=== PATIENT | female | born 1955 | race Hispanic/Latino ===

== ENCOUNTER → 2017-11-17 | Outpatient (CLI) | payer MEDICAID | END | disposition home or self-care (01) | LOC: RAH 10:39 | PROVIDERS: ATTEND Family Medicine | DX: Z12.31 Encounter for screening mammogram for malignant neoplasm of breast (principal); M51.16 Intervertebral disc disorders with radiculopathy, lumbar region; M51.17 Intervertebral disc disorders with radiculopathy, lumbosacral region; M48.061 Spinal stenosis, lumbar region without neurogenic claudication | CPT/HCPCS: 72148; 77067 ==

== ENCOUNTER 2018-09-30 20:14 | Inpatient (IN) | payer MEDICAID ==
[~2018-09-30] VITALS: Ht 162.6 cm; Wt 72.0 kg
[2018-09-30 21:57] LABS: BASOPHILS % (AUTO) 0.7 % (0.0-5.0); EOSINOPHILS % (AUTO) 3.4 % (0.0-8.0); HEMATOCRIT 38.4 % (36-48); LYMPHOCYTES % (AUTO) 17.6 % (21.0-51.0); MEAN CORPUSCULAR HEMOGLOBIN 28.1 pg (27.0-33.0); MEAN CORPUSCULAR HGB CONC 33.1 g/dL (32.0-36.0); MEAN CORPUSCULAR VOLUME 84.8 fL (79-99); MONOCYTES % (AUTO) 5.3 % (3.0-13.0); NUCLEATED RED BLOOD CELLS 0.1 % (0.0-0.19); PLATELET COUNT (AUTO) 285 K/uL (130-400); RED BLOOD CELL COUNT(AUTO) 4.53 MIL/uL (4.00-5.50); RED CELL DISTRIBUTION WIDTH 16.2 % (11.0-15.5); WHITE BLOOD COUNT (AUTO) 7.5 K/uL (4.8-10.8)
[2018-09-30] MEDS ORDERED: VANCOMYCIN 1GM+NS 250ML 250 ML IV ONE (22:01)
[2018-09-30] MEDS ORDERED: ONDANSETRON HCL 4 MG/2 ML VIAL ONE (22:01)
[2018-09-30] MEDS ORDERED: MORPHINE SULFATE 4 MG/1ML SYG ONE (22:02)
[2018-09-30 22:07] LABS: CREATININE 1.7 mg/dL (0.5-1.5); POTASSIUM 3.3 mmol/L (3.5-5.1)
[2018-09-30 22:12] LABS: ALBUMIN 3.6 g/dL (3.5-5.0); BILIRUBIN,TOTAL 0.4 mg/dL (0.2-1.0); TOTAL PROTEIN, SERUM 8.3 g/dL (6.0-8.3)
[2018-09-30 23:14] LABS: ERYTHROCYTE SEDIMENTATION RATE 62 MM/HR (0-30)
[2018-10-01] VITALS (7 sets, daily range): BP systolic 115–160; BP diastolic 60–86
[2018-10-01] MEDS: SODIUM CHLORIDE 0.9% 1000ML 1,000 ML IV SCH ×2 (00:22→12:02)
[2018-10-01] MEDS ORDERED: ONDANSETRON HCL 4 MG/2 ML VIAL IV PRN (00:30)
[2018-10-01] MEDS ORDERED: ACETAMINOPHEN 325 MG TAB PO PRN ×2 (00:30)
[2018-10-01] MEDS ORDERED: HYDRALAZINE HCL 20 MG/ML VIAL IV PRN (00:30)
[2018-10-01] MEDS ORDERED: HYDROCODONE/ACETAMINOPHEN 5/325 MG TAB PO PRN ×2 (00:30)
[2018-10-01] MEDS ORDERED: VANCOMYCIN 1GM+NS 250ML 250 ML IV SCH (00:30)
[2018-10-01] MEDS ORDERED: ZOSYN 3.375GM+NS 50ML 50 ML IV ONE (00:40)
[2018-10-01] MEDS ORDERED: HYDROCODONE/ACETAMINOPHEN 5/325 MG TAB ONE ×2 (01:01→02:22)
[2018-10-01] MEDS ORDERED: SUCR1TAB2 PO (02:51)
[2018-10-01] MEDS ORDERED: ATOR40TA69 PO (02:51)
[2018-10-01] MEDS ORDERED: CLIN300C9 PO (02:51)
[2018-10-01] MEDS ORDERED: BIOT10004 PO (02:51)
[2018-10-01] MEDS ORDERED: METO25 PO (02:51)
[2018-10-01] MEDS ORDERED: PYRI100T2 PO (02:51)
[2018-10-01] MEDS ORDERED: OXYB5TAB10 PO (02:51)
[2018-10-01] MEDS ORDERED: SERT25TA5 PO (02:51)
[2018-10-01] MEDS ORDERED: CILO100T PO (02:51)
[2018-10-01] MEDS ORDERED: VANCOMYCIN PROTOCOL PER PHARMACY IV SCH (03:30)
[2018-10-01] MEDS ORDERED: LIDOCAINE HCL-MPF 1% 2ML VIAL IVP PRN (08:30)
[2018-10-01] MEDS ORDERED: POTASSIUM CHLORIDE 10% ELIXIR 20 MEQ/15 ML UDCUP PO PRN (08:30)
[2018-10-01] MEDS ORDERED: POTASSIUM CHLORIDE 10MEQ/100ML 100 ML IV PRN (08:30)
[2018-10-01] MEDS ORDERED: POTASSIUM CHLORIDE 20 MEQ ERTAB PO PRN (08:30)
--- NOTE | 2018-10-01 08:45 | NUR ---
DR TENORIO IN TO SEE PATIENT ORDER MRI OF LEFT FOOT
[2018-10-01] MEDS: BIOTIN 500 MCG PO SCH (09:00)
[2018-10-01] MEDS: FAMOTIDINE/PF 20 MG/2 ML VIAL IV SCH (10:19)
[2018-10-01] MEDS: SUCRALFATE 1 GM TABLET PO SCH (10:19)
[2018-10-01] MEDS: PYRIDOXINE HCL 50 MG TABLET PO SCH (10:20)
[2018-10-01] MEDS: METOPROLOL TARTRATE 25 MG TAB PO SCH ×2 (10:20→20:29)
[2018-10-01] MEDS: CILOSTAZOL 100 MG TAB PO SCH ×2 (10:20→20:30)
[2018-10-01] MEDS: SERTRALINE HCL 50 MG TABLET PO SCH (10:20)
--- NOTE | 2018-10-01 10:25 | NUR ---
DOWN FOR MRI OF LEFT FOOT
--- NOTE | 2018-10-01 10:55 | NUR ---
BACK FROM MRI
[2018-10-01] MEDS: ZOSYN 3.375GM+NS 50ML 50 ML IV SCH ×2 (10:57→20:28)
[2018-10-01] MEDS: ENOXAPARIN SODIUM 30 MG/0.3 ML SQ SCH ×2 (10:58→20:29)
[2018-10-01] MEDS: INSULIN HUMULIN R 100 UNIT/ML 3ML SQ SCH ×3 (11:58→22:32)
--- NOTE | 2018-10-01 17:34 | NUR ---
D/C PLAN CM spoke to pt regarding d/c planning. Pt lives with dtr and has provider about 30 hrs/week. States she has wk but currently not ambulatory. CM spoke to pt regarding possible short term snf/rehab. Pt states she prefers to d/c home. CM to f/u. Plan to home vs snf/rehab. Addendum: 10/01/18 at 1737 by HUBER DRAKE CM Amended: Links added.
[2018-10-01] MEDS: VANCOMYCIN 1GM+NS 250ML 250 ML IV SCH (20:29)
[2018-10-01] MEDS: ATORVASTATIN CALCIUM 40 MG TABLET PO SCH (20:29)
[2018-10-01] MEDS: OXYBUTYNIN CHLORIDE 5 MG TABLET PO SCH (20:29)
[2018-10-02] MEDS: SODIUM CHLORIDE 0.9% 1000ML 1,000 ML IV SCH (02:44)
[2018-10-02 03:57] VITALS: BP 164/96
[2018-10-02 05:02] LABS: BASOPHILS % (AUTO) 0.7 % (0.0-5.0); EOSINOPHILS % (AUTO) 4.4 % (0.0-8.0); LYMPHOCYTES % (AUTO) 17.2 % (21.0-51.0); MEAN CORPUSCULAR HEMOGLOBIN 28.1 pg (27.0-33.0); MEAN CORPUSCULAR HGB CONC 33.2 g/dL (32.0-36.0); MEAN CORPUSCULAR VOLUME 84.4 fL (79-99); MONOCYTES % (AUTO) 7.9 % (3.0-13.0); NEUTROPHILS % (AUTO) 69.8 % (40.0-77.0); PLATELET COUNT (AUTO) 259 K/uL (130-400); RED BLOOD CELL COUNT(AUTO) 4.15 MIL/uL (4.00-5.50); RED CELL DISTRIBUTION WIDTH 15.9 % (11.0-15.5); WHITE BLOOD COUNT (AUTO) 6.2 K/uL (4.8-10.8)
[2018-10-02 05:08] LABS: CREATININE 1.5 mg/dL (0.5-1.5); MAGNESIUM 1.4 mg/dL (1.80-2.40)
[2018-10-02 08:32] VITALS: BP 137/80
[2018-10-02] MEDS: BIOTIN 500 MCG PO SCH (09:00)
--- NOTE | 2018-10-02 09:30 | NUR ---
1ST AND 5TH LEFT TOE BLACK CLOSED WOUND NO DRAINING BUT PAINFUL WHEN TOUCH, BOTTOM OF HEAL ULCER FOOT DRESSING COMPLETED TODAY BY DR TENORIO Addendum: 10/02/18 at 1822 by RAYO CONNELL RN RN Amended: Links added.
[2018-10-02] MEDS: SUCRALFATE 1 GM TABLET PO SCH (09:34)
[2018-10-02] MEDS: ZOSYN 3.375GM+NS 50ML 50 ML IV SCH ×2 (09:34→21:49)
[2018-10-02] MEDS: METOPROLOL TARTRATE 25 MG TAB PO SCH ×2 (09:35→21:49)
[2018-10-02] MEDS: FAMOTIDINE/PF 20 MG/2 ML VIAL IV SCH (09:35)
[2018-10-02] MEDS: SERTRALINE HCL 50 MG TABLET PO SCH (09:35)
[2018-10-02] MEDS: PYRIDOXINE HCL 50 MG TABLET PO SCH (09:35)
[2018-10-02] MEDS: CILOSTAZOL 100 MG TAB PO SCH ×2 (09:35→21:49)
[2018-10-02] MEDS: ENOXAPARIN SODIUM 30 MG/0.3 ML SQ SCH ×2 (09:41→21:49)
[2018-10-02] MEDS: INSULIN HUMULIN R 100 UNIT/ML 3ML SQ SCH ×3 (09:45→17:01)
[2018-10-02 11:58] VITALS: BP 139/84
--- NOTE | 2018-10-02 13:45 | NUR ---
DR RAYMOND IN TO SEE PATIENT AND NO POSSIBLE INTERVENTION FOR HER TO IMPROVE LOWER CIRCULATIONS. HE HAD SEEN HER IN CLINIC TWO WEEKS AGO.
[2018-10-02 16:37] VITALS: BP 153/67
[2018-10-02 20:00] VITALS: BP 139/67
[2018-10-02] MEDS: VANCOMYCIN 1GM+NS 250ML 250 ML IV SCH (21:48)
[2018-10-02] MEDS: OXYBUTYNIN CHLORIDE 5 MG TABLET PO SCH (21:49)
[2018-10-02] MEDS: ATORVASTATIN CALCIUM 40 MG TABLET PO SCH (21:50)
[2018-10-02 23:47] VITALS: BP 150/89
[2018-10-03] VITALS (7 sets, daily range): BP systolic 134–159; BP diastolic 54–96
[2018-10-03] MEDS: INSULIN HUMULIN R 100 UNIT/ML 3ML SQ SCH ×5 (06:26→22:02)
[2018-10-03] MEDS: BIOTIN 500 MCG PO SCH (09:00)
[2018-10-03] MEDS: ZOSYN 3.375GM+NS 50ML 50 ML IV SCH ×2 (09:39→22:05)
[2018-10-03] MEDS: ENOXAPARIN SODIUM 30 MG/0.3 ML SQ SCH ×2 (09:40→22:07)
[2018-10-03] MEDS: PYRIDOXINE HCL 50 MG TABLET PO SCH (09:40)
[2018-10-03] MEDS: FAMOTIDINE/PF 20 MG/2 ML VIAL IV SCH (09:40)
[2018-10-03] MEDS: CILOSTAZOL 100 MG TAB PO SCH ×2 (09:41→22:06)
[2018-10-03] MEDS: METOPROLOL TARTRATE 25 MG TAB PO SCH ×2 (09:41→22:06)
[2018-10-03] MEDS: SERTRALINE HCL 50 MG TABLET PO SCH (09:42)
[2018-10-03] MEDS: SUCRALFATE 1 GM TABLET PO SCH (09:42)
--- NOTE | 2018-10-03 19:20 | NUR ---
PA NURSES, ROUNDS DONE. SHREE CLAUDIO FOR HOSPITALIST, IN AND TALKED PT ABOUT RECOMMENDATIONS AND ASSESSMENT OF THE CONSULTS. PT STILL REFUSING SX ON LEFT LEG AT THIS TIME.
--- NOTE | 2018-10-03 20:40 | NUR ---
PIV SECOND PIV INSERTED G20 TO RFA FOR IV ANTIBIOTIC INFUSION. DRESSING CHANGE ON LEFT FOOT DONE PER DR TENORIO ORDERS. ULCERS WITH ESCHAR BUT DRY AND NO FOULS SMELL NOTED. CLEANSED ULCERS ON THE 1ST, 5TH AND HEEL AREAS WITH SALINE, PAT DRY THEN BETADINE CAST APPLIED, COVERED WITH GAUZE THEN SECURED WITH KERLIX AND TAPE. PT TOLERATED PROCEDURES WELL. KEPT COMFORTABLE IN BED. CALL LIGHT WITHIN REACH. WILL MONITOR PT. Addendum: 10/03/18 at 2134 by MARIKA CASSIDY RN RN Amended: Links added.
[2018-10-03] MEDS ORDERED: INSULIN GLARGINE 100 UNITS/ML 10 ML VIAL SQ SCH (21:00)
[2018-10-03] MEDS: OXYBUTYNIN CHLORIDE 5 MG TABLET PO SCH (22:06)
[2018-10-03] MEDS: VANCOMYCIN 1GM+NS 250ML 250 ML IV SCH (22:06)
[2018-10-03] MEDS: ATORVASTATIN CALCIUM 40 MG TABLET PO SCH (22:06)
--- NOTE | 2018-10-04 03:30 | NUR ---
NURSING OBSERVATION ASSISTED PT TO RESTROOM. TRANSFERRED PT VIA WC. PATIENT REPORTS REMOVING DRESSING TO LEFT FOOT D/T NOT WANTING ANYTHING ON HER FOOT. REINFORCED TEACHING TO PATIENT THAT THE DOCTOR ORDERED DRESSING ON THE FOOT, PT CONTINUES TO REPORTS SHE DOES NOT WANT ANYTHING ON THE FOOT. PATIENT NOT WEARING NON-SKID SOCKS D/T PATIENT REPORTING THEY CAUSE HER TO SLIP AND PREFERS TO BE BAREFOOT - REINFORCED THE NEED TO WEAR THE NON-SKID SOCKS. RETURNED PATIENT TO BED. BED LOCKED IN LOWEST POSITION. CALL LIGHT WITHIN REACH. Addendum: 10/04/18 at 0412 by BULMARO MARIE RN RN Amended: Links added.
[2018-10-04 04:00] VITALS: BP 156/84
[2018-10-04 05:36] LABS: HEMATOCRIT 35.7 % (36-48); MEAN CORPUSCULAR HEMOGLOBIN 28.3 pg (27.0-33.0); MEAN CORPUSCULAR HGB CONC 33.9 g/dL (32.0-36.0); MEAN CORPUSCULAR VOLUME 83.5 fL (79-99); PLATELET COUNT (AUTO) 239 K/uL (130-400); RED BLOOD CELL COUNT(AUTO) 4.28 MIL/uL (4.00-5.50); RED CELL DISTRIBUTION WIDTH 15.6 % (11.0-15.5); WHITE BLOOD COUNT (AUTO) 6.4 K/uL (4.8-10.8)
[2018-10-04 05:45] LABS: CREATININE 1.6 mg/dL (0.5-1.5); POTASSIUM 4.1 mmol/L (3.5-5.1)
[2018-10-04] MEDS: INSULIN HUMULIN R 100 UNIT/ML 3ML SQ SCH ×2 (06:04→12:42)
[2018-10-04 08:00] VITALS: BP 124/60
[2018-10-04] MEDS: BIOTIN 500 MCG PO SCH (09:00)
[2018-10-04] MEDS: ENOXAPARIN SODIUM 30 MG/0.3 ML SQ SCH (09:52)
[2018-10-04] MEDS: FAMOTIDINE/PF 20 MG/2 ML VIAL IV SCH (09:52)
[2018-10-04] MEDS: ZOSYN 3.375GM+NS 50ML 50 ML IV SCH (09:52)
[2018-10-04] MEDS: SERTRALINE HCL 50 MG TABLET PO SCH (09:53)
[2018-10-04] MEDS: PYRIDOXINE HCL 50 MG TABLET PO SCH (09:54)
[2018-10-04] MEDS: METOPROLOL TARTRATE 25 MG TAB PO SCH (09:54)
[2018-10-04] MEDS: SUCRALFATE 1 GM TABLET PO SCH (09:54)
[2018-10-04] MEDS: CILOSTAZOL 100 MG TAB PO SCH (09:54)
[2018-10-04] MEDS ORDERED: DIPH,PERTUSS(ACELL),TET VAC/PF 0.5 ML VIAL IM SCH (11:30)
[2018-10-04 12:00] VITALS: BP 156/76
--- NOTE | 2018-10-04 15:16 | NUR ---
PATIENT DISCHARGE PATIENT DISCHARGED, IV DISCONTINUED, CATHLON INTACT, BLEEDING CONTROLLED, PATIENT TOLERATED WITHOUT INCIDENT.
== END 2018-10-04 15:30 | disposition home or self-care (01) | DRG 344 ==
LOC: EDH 20:14 → EDHIP 20:15 → 3BH 10-01 00:40
PROVIDERS: ADMIT Internal Medicine; ATTEND Internal Medicine
PROC: 0HDRXZZ Extraction of Toe Nail, External Approach (ICD-10-PCS; principal; 2018-10-01)
PROC: 0HDRXZZ Extraction of Toe Nail, External Approach (ICD-10-PCS; 2018-10-01)
PROC: 0HDQXZZ Extraction of Finger Nail, External Approach (ICD-10-PCS; 2018-10-01)
DX: E11.69 Type 2 diabetes mellitus with other specified complication (principal); M86.8X7 Other osteomyelitis, ankle and foot; I96 Gangrene, not elsewhere classified; E11.621 Type 2 diabetes mellitus with foot ulcer; E11.65 Type 2 diabetes mellitus with hyperglycemia; L97.409 Non-pressure chronic ulcer of unspecified heel and midfoot with unspecified severity; L03.116 Cellulitis of left lower limb; I25.10 Atherosclerotic heart disease of native coronary artery without angina pectoris; B35.1 Tinea unguium; L60.0 Ingrowing nail; E11.52 Type 2 diabetes mellitus with diabetic peripheral angiopathy with gangrene; L60.2 Onychogryphosis; N28.9 Disorder of kidney and ureter, unspecified; I99.8 Other disorder of circulatory system; L97.429 Non-pressure chronic ulcer of left heel and midfoot with unspecified severity; E87.6 Hypokalemia; E78.5 Hyperlipidemia, unspecified; I10 Essential (primary) hypertension; Z95.1 Presence of aortocoronary bypass graft; Z79.4 Long term (current) use of insulin; Z83.3 Family history of diabetes mellitus; Z79.899 Other long term (current) drug therapy; Z98.891 History of uterine scar from previous surgery
CPT/HCPCS: 36415; 73630; 73718; 80048; 80053; 82948; 83735; 85025; 85027; 85651; 87040; 90715; 93925; G0378; J1650; J1815; J2270; J2405; J2543; J3370; J3490

== ENCOUNTER → 2020-10-04 | Outpatient (CLI) | payer OTHER, MEDICARE ==
[~2020-10-04] MED LIST: ATOR40TA69 PO; BIOT10004 PO; CILO100T PO; METO25 PO; OXYB5TAB15 PO; PYRI100T10 PO; SERT-438 PO; SUCR1TAB2 PO
== END | disposition home or self-care (01) ==
LOC: RAH 12:37
PROVIDERS: ATTEND Internal Medicine
DX: N32.89 Other specified disorders of bladder (principal); N12 Tubulo-interstitial nephritis, not specified as acute or chronic
CPT/HCPCS: 76770

== ENCOUNTER 2021-12-23 13:46 | Observation (INO) | payer OTHER, MEDICARE ==
[~2021-12-23 13:46] MED LIST changes: +PHEN-775 PO
[2021-12-23 14:02] LABS: BASOPHILS % (AUTO) 0.6 % (0.0-5.0); EOSINOPHILS % (AUTO) 0.8 % (0.0-8.0); HEMATOCRIT 35.6 % (36-48); LYMPHOCYTES % (AUTO) 8.1 % (21.0-51.0); MEAN CORPUSCULAR HEMOGLOBIN 23.8 pg (27.0-33.0); MEAN CORPUSCULAR HGB CONC 30.6 g/dL (32.0-36.0); MEAN CORPUSCULAR VOLUME 77.7 fL (79-99); MONOCYTES % (AUTO) 8.7 % (3.0-13.0); NEUTROPHILS % (AUTO) 81.4 % (40.0-77.0); PLATELET COUNT (AUTO) 183 K/uL (130-400); RED BLOOD CELL COUNT(AUTO) 4.58 MIL/uL (4.00-5.50); RED CELL DISTRIBUTION WIDTH 21.7 % (11.0-15.5)
[2021-12-23 14:23] LABS: CARBON DIOXIDE 29 mmol/L (21-32); CHLORIDE 105 mmol/L (101-111); CREATININE 1.5 mg/dL (0.5-1.5); GLOMERULAR FILTR. RATE CALC 37 mL/min (>60); GLUCOSE,RANDOM 95 mg/dL (70-105); POTASSIUM 3.2 mmol/L (3.5-5.1); SODIUM SERUM 143 mmol/L (136-145); UREA NITROGEN, BLOOD 34 mg/dL (7-18)
[2021-12-23 14:27] LABS: B-TYPE NATRIURETIC PEPTIDE 2600 pg/mL (0-100)
[2021-12-23 14:28] LABS: ALBUMIN 2.5 g/dL (3.5-5.0); ASPARTATE AMINOTRANSFERASE 19 U/L (10-37); TOTAL PROTEIN, SERUM 6.6 g/dL (6.0-8.3)
[2021-12-23 14:29] LABS: APPEARANCE,URINE SL CLOUDY (CLEAR); BILIRUBIN,URINE NEGATIVE (NEGATIVE); COLOR,URINE YELLOW (YELLOW); GLUCOSE, URINE (UA) NEGATIVE (NEGATIVE); KETONES,URINE NEGATIVE (NEGATIVE); LEUKOCYTE ESTERASE ,URINE SMALL (NEGATIVE); NITRATE,URINE NEGATIVE (NEGATIVE); OCCULT BLOOD,URINE NEGATIVE (NEGATIVE); PROTEIN,URINE NEGATIVE (NEGATIVE)
[2021-12-23] MEDS ORDERED: FUROSEMIDE 40MG VIAL IV STA (14:36)
[2021-12-23 14:47] LABS: ALANINE AMINOTRANSFERASE < 6 U/L (12-78)
[2021-12-23 14:50] LABS: BACTERIA,URINE Few /HPF (None Seen); RBC,URINE 0-1 /HPF (0-1)
[2021-12-23 14:51] LABS: HYALINE CASTS, URINE 0-1 /LPF (0-1 /LPF); SQUAMOUS EPITHELIAL CELL,UR Rare /HPF (0-2)
[2021-12-23] MEDS ORDERED: ONDANSETRON 4MG INJ IVP PRN (15:30)
[2021-12-23] MEDS ORDERED: HYDRALAZINE 20MG/ML VIAL IV PRN (15:30)
[2021-12-23] MEDS ORDERED: LACTULOSE 20 GM/30 ML UDCUP PO PRN (15:30)
[2021-12-23] MEDS ORDERED: CLONIDINE HCL 0.1 MG TABLET PO PRN ×2 (15:30)
[2021-12-23] MEDS ORDERED: ACETAMINOPHEN 325 MG TAB PO PRN (15:30)
[2021-12-23] MEDS ORDERED: ACETAMINOPHEN 650 MG SUPPOSITORY RC PRN (15:30)
[2021-12-23] MEDS ORDERED: POTASSIUM CHLORIDE 10% ELIXIR 20 MEQ/15 ML UDCUP PO PRN (16:00)
[2021-12-23] MEDS ORDERED: DEXTROSE 50%-WATER 50 ML DISP.SYRIN IV PRN (16:00)
[2021-12-23] MEDS ORDERED: MAGNESIUM 2GM PREMIX 50ML 50 ML IV PRN (16:00)
[2021-12-23] MEDS ORDERED: LIDOCAINE HCL-MPF 1% 2ML VIAL IV PRN ×2 (16:00)
[2021-12-23] MEDS ORDERED: GLUCAGON 1MG KIT 1 MG ML IM PRN (16:00)
[2021-12-23] MEDS ORDERED: POTASSIUM CHLORIDE 20MEQ/100ML 100 ML IV PRN ×2 (16:00)
[2021-12-23] MEDS: INSULIN HUMULIN R 100 UNIT/ML 3ML SQ SCH ×2 (16:30→20:51)
[2021-12-23] MEDS: ZOSYN 3.375GM +NS 50ML IV SCH ×2 (16:39→23:58)
[2021-12-23] MEDS: KCL 20 MEQ ERTAB PO PRN (16:39)
[2021-12-23] MEDS: FUROSEMIDE 20MG VIAL IV SCH (21:00)
[2021-12-24] MEDS: AZITHROMYCIN 500MG+NS 250ML IVPB SCH (01:30)
[2021-12-24] MEDS: CEFTRIAXONE 1G VIAL IVP SCH (01:30)
[2021-12-24 04:50] LABS: BASOPHILS % (AUTO) 0.7 % (0.0-5.0); EOSINOPHILS % (AUTO) 4.9 % (0.0-8.0); HEMATOCRIT 35.3 % (36-48); LYMPHOCYTES % (AUTO) 10.2 % (21.0-51.0); MEAN CORPUSCULAR HEMOGLOBIN 23.8 pg (27.0-33.0); MEAN CORPUSCULAR VOLUME 79.1 fL (79-99); MONOCYTES % (AUTO) 7.9 % (3.0-13.0); PLATELET COUNT (AUTO) 166 K/uL (130-400); RED BLOOD CELL COUNT(AUTO) 4.46 MIL/uL (4.00-5.50); RED CELL DISTRIBUTION WIDTH 21.4 % (11.0-15.5); WHITE BLOOD COUNT (AUTO) 7.6 K/uL (4.8-10.8)
[2021-12-24 05:00] VITALS: BP 120/71
[2021-12-24 05:11] LABS: CREATININE 1.5 mg/dL (0.5-1.5); MAGNESIUM 1.8 mg/dL (1.80-2.40); PHOSPHORUS 3.4 mg/dL (2.5-4.9); POTASSIUM 3.3 mmol/L (3.5-5.1)
[2021-12-24] MEDS ORDERED: FURO40TA5 PO (05:28)
[2021-12-24] MEDS ORDERED: METO-391 PO (05:28)
[2021-12-24] MEDS ORDERED: CLOP75TA32 PO (05:28)
[2021-12-24] MEDS ORDERED: GABA300C PO (05:28)
[2021-12-24] MEDS ORDERED: SERT-439 PO (05:28)
[2021-12-24] MEDS ORDERED: LINA5TAB PO (05:28)
[2021-12-24] MEDS: INSULIN HUMULIN R 100 UNIT/ML 3ML SQ SCH ×4 (06:15→21:09)
[2021-12-24] MEDS: PANTOPRAZOLE 40 MG TAB DR PO SCH (08:23)
[2021-12-24] MEDS: FUROSEMIDE 20MG VIAL IV SCH ×2 (08:23→21:07)
[2021-12-24] MEDS: ENOXAPARIN SODIUM 40 MG/0.4 ML SYRINGE SQ SCH (08:23)
[2021-12-24] MEDS: POLYETHYLENE GLYCOL 3350 17 GM POWD.PACK PO SCH (08:23)
[2021-12-24] MEDS: ASPIRIN 81MG CHEW TAB PO SCH (08:24)
[2021-12-24 09:02] VITALS: BP 109/65
[2021-12-24 12:24] VITALS: BP 130/55
[2021-12-24] MEDS: KCL 20 MEQ ERTAB PO PRN ×2 (16:10→18:53)
[2021-12-24 17:27] VITALS: BP 122/62
[2021-12-24 19:33] VITALS: BP 115/53
[2021-12-24 23:51] VITALS: BP 109/55
[2021-12-25] MEDS ORDERED: 0.9% NACL 250ML 250 ML ONE (01:27)
[2021-12-25] MEDS: CEFTRIAXONE 1G VIAL IVP SCH (01:33)
[2021-12-25] MEDS: AZITHROMYCIN 500MG+NS 250ML IVPB SCH (01:33)
[2021-12-25 03:47] VITALS: BP 100/57
[2021-12-25] MEDS: INSULIN HUMULIN R 100 UNIT/ML 3ML SQ SCH ×2 (06:15→11:30)
[2021-12-25 07:11] VITALS: BP 156/60
[2021-12-25] MEDS ORDERED: GABAPENTIN 300 MG CAPSULE PO SCH (09:00)
[2021-12-25] MEDS ORDERED: SERTRALINE HCL 50 MG TABLET PO SCH (09:00)
[2021-12-25] MEDS ORDERED: METOPROLOL SUCCINATE 50 MG TAB.SR.24H PO SCH (09:00)
[2021-12-25] MEDS ORDERED: FUROSEMIDE 40 MG TABLET PO SCH (09:00)
[2021-12-25] MEDS ORDERED: CLOPIDOGREL 75MG TAB PO SCH (09:00)
[2021-12-25] MEDS: ENOXAPARIN SODIUM 40 MG/0.4 ML SYRINGE SQ SCH (10:00)
[2021-12-25] MEDS: PANTOPRAZOLE 40 MG TAB DR PO SCH (10:01)
[2021-12-25] MEDS: ASPIRIN 81MG CHEW TAB PO SCH (10:01)
[2021-12-25] MEDS: POLYETHYLENE GLYCOL 3350 17 GM POWD.PACK PO SCH (10:01)
[2021-12-25 12:12] VITALS: BP 118/66
[2021-12-25 16:02] VITALS: BP 112/62
[2021-12-25] MEDS ORDERED: ATORVASTATIN 40 MG TABLET PO SCH (21:00)
== END 2021-12-25 19:15 | disposition home or self-care (01) ==
LOC: EDH 13:46 → EDHIP 15:25 → 4CH 12-24 04:30
PROVIDERS: ADMIT Internal Medicine; ATTEND Internal Medicine
DX: J96.01 Acute respiratory failure with hypoxia (principal); Z20.822 Contact with and (suspected) exposure to COVID-19; I11.0 Hypertensive heart disease with heart failure; I50.21 Acute systolic (congestive) heart failure; E11.9 Type 2 diabetes mellitus without complications; E66.01 Morbid (severe) obesity due to excess calories; E78.00 Pure hypercholesterolemia, unspecified; G47.33 Obstructive sleep apnea (adult) (pediatric); G62.9 Polyneuropathy, unspecified; F32.A Depression, unspecified; Z89.611 Acquired absence of right leg above knee; Z89.612 Acquired absence of left leg above knee; Z95.1 Presence of aortocoronary bypass graft; Z79.899 Other long term (current) drug therapy; Z98.890 Other specified postprocedural states; Z79.4 Long term (current) use of insulin
CPT/HCPCS: 83880 ×2; 96376 ×3; 96365; 96366 ×4; 96375 ×2; 82550 ×3; 83874 ×3; 84484 ×4; 80053; 85025 ×2; 85378; 87040 ×2; 82948 ×9; 83605; 81001; 36415 ×2; 87635; 71045 ×2; 93306; 93356; 99291; 93005; 84145; 96372 ×2; 96367; 96368; 83735; 84100; 80048; G0378 ×50; C9803; J2543 ×2; J1940 ×4; J1815; J3475; J0696 ×2; J0456 ×2; J1650 ×2; J7050